=== PATIENT | female | born 1990 | race Caucasian/White ===

== ENCOUNTER 2019-07-10 05:41 | Day surgery (SDC) | payer OTHER ==
[2019-07-10] VITALS (17 sets, daily range): BP systolic 100–136; BP diastolic 58–78; PULSE 67–86; TEMP 97.1–100.2
[~2019-07-10] VITALS: Ht 160 cm; Wt 53.8 kg
[2019-07-10] MEDS ORDERED: JUNEL 1/20 20 M1 TAB PO (06:17)
[2019-07-10] MEDS ORDERED: PERCOCET 325 MG1 TA2 PO (16:46)
[2019-07-10] MEDS ORDERED: IBU600 MG PO (16:47)
[2019-07-11 01:15] VITALS: BP 101/58; PULSE 67; TEMP 98.3
[2019-07-11 09:00] VITALS: BP 115/51; PULSE 78; TEMP 98.5
== END 2019-07-11 10:30 | disposition home or self-care (01) ==
LOC: SDCO 05:41 → OB 10:10 → SDCO 07-11 10:30
DX: D39.12 Neoplasm of uncertain behavior of left ovary (principal); N83.292 Other ovarian cyst, left side
CPT/HCPCS: OP; A4314; J0171; J0690; J1100; J1885; J2405; J2704; J3010; J7120